=== PATIENT | female | born 1990 | race Caucasian/White ===

== ENCOUNTER 2019-05-22 13:44 | Outpatient (CLI) | payer BC, SELFPAY ==
[2019-05-22 16:17] LABS: Hematocrit 32.3 % (37.0-47.0); Hemoglobin 10.7 g/dL (12.0-15.0); Mean Corpuscular HGB Conc 33.1 g/dl (32-36); Mean Corpuscular Hemoglobin 30.9 pg (26-34); Mean Corpuscular Volume 93.4 fl (80-100); Mean Platelet Volume 11.3 fl (7.4-10.4); Platelet Count Result 260 k/mm3 (150-375); Red Blood Count 3.46 M/mm3 (4.2-5.4); Red Cell Distribution Width 15.2 % (11.5-14.5); White Blood Count 15.7 K/mm3 (4.5-10.0)
[2019-05-22 16:28] LABS: Glucose 1 Hour PP 50gm Dose 110 mg/dL
[2019-05-22 16:59] LABS: Hepatitis B Surface Antigen Negative (Negative)
[2019-05-22 17:01] LABS: Rubella IgG Antibody 5.6 IU/ML
[2019-05-22 17:10] LABS: HIV 1/2 Ab P24 Ag Result Negative (Negative)
[2019-05-25 10:50] LABS: Rapid Plasma Reagin Non-Reactive (NonReactive)
[2019-05-27 07:28] LABS: CMV IgG Antibody <0.60 U/mL (<0.60)
== END 2019-05-22 13:45 | disposition home or self-care (01) ==
PROVIDERS: Visit Provider Obstetrics & Gynecology
DX: Z34.90 Encounter for supervision of normal pregnancy, unspecified, unspecified trimester (principal); N92.5 Other specified irregular menstruation
CPT/HCPCS: 36415; 82947; 84702; 85027; 86592; 86644; 86703; 86747; 86762; 86787; 86850; 86900; 86901; 87086; 87340; G0432